=== PATIENT | male | born 1960 | race Caucasian/White ===

== ENCOUNTER 2019-10-29 09:12 | Outpatient (CLI) | payer OTHER, SELFPAY ==
[2019-10-29 09:28] LABS: Basophils Absolute Auto 0.1 K/mm3 (0.0-0.1); Basophils Percent Auto 0.8 % (0.2-1.2); Eosinophils Absolute Auto 0.1 K/mm3 (0-0.3); Eosinophils Percent Auto 1.5 % (0-4.4); Hematocrit 45.6 % (42.0-52.0); Hemoglobin 15.1 g/dL (14.0-18.0); Immature Granulocyte Absolute 0.04 K/mm3 (0.00-0.031); Immature Granulocyte Percent A 0.4 % (0-0.5); Lymphocytes Absolute Auto 1.11 K/mm3 (0.9-3.2); Mean Corpuscular HGB Conc 33.1 g/dl (32-36); Mean Corpuscular Volume 87.5 fl (80-100); Mean Platelet Volume 9.9 fl (7.4-10.4); Monocytes Absolute Auto 0.9 K/mm3 (0.1-0.6); Monocytes Percent Auto 9.7 % (2.6-8.5); Neutrophils Percent Auto 75.6 % (45.5-73.1); Platelet Count Result 304 k/mm3 (150-375); Red Blood Count 5.21 M/mm3 (4.6-6.20); Red Cell Distribution Width 13.2 % (11.5-14.5); White Blood Count 9.3 K/mm3 (4.5-10.0)
[2019-10-29 09:34] LABS: Blood Urea Nitrogen 14 mg/dL (8-26); Carbon Dioxide 24 mmol/L (22-30); Chloride 106 mmol/L (98-109); Estimated Glomerular Filt Rate > 60; Glucose 89 mg/dL (70-105); Potassium 4.1 mmol/L (3.5-4.9); Sodium 140 mmol/L (138-146)
[2019-10-29 12:45] LABS: Alanine Aminotransferase 18 U/L (4-50); Alkaline Phosphatase 78 U/L (38-126); Aspartate Amino Transferase 29 U/L (17-59); Bilirubin,Total 0.5 mg/dL (0.2-1.3); Blood Urea Nitrogen 15 mg/dL (9-20); Calcium 9.2 mg/dL (8.4-10.2); Carbon Dioxide 26 mmol/L (22-30); Chloride 106 mmol/L (98-107); Estimated Glomerular Filt Rate > 60; Glucose 88 mg/dL (75-110); Potassium 4.2 mmol/L (3.4-5.0); Sodium 138 mmol/L (137-145)
[2019-10-29 13:12] LABS: Prostate Specific Antigen < 0.1 ng/mL (< OR = 4.0)
== END 2019-10-29 09:13 | disposition home or self-care (01) ==
PROVIDERS: Visit Provider Internal Medicine Hematology & Oncology
DX: C61 Malignant neoplasm of prostate (principal)
CPT/HCPCS: 36415; 80048; 80053; 84153; 85025

== ENCOUNTER 2020-07-27 09:26 | Outpatient (CLI) | payer OTHER, SELFPAY ==
[2020-07-27 13:37] LABS: Alanine Aminotransferase 18 U/L (4-50); Albumin Level 3.9 g/dL (3.5-5.1); Alkaline Phosphatase 78 U/L (38-126); Anion Gap 4 mmol/L (8-16); Aspartate Amino Transferase 28 U/L (17-59); Bilirubin,Total 0.3 mg/dL (0.2-1.3); Blood Urea Nitrogen 17 mg/dL (9-20); Calcium 9.3 mg/dL (8.4-10.2); Carbon Dioxide 29 mmol/L (22-30); Chloride 103 mmol/L (98-107); Cholesterol 182 mg/dL (0-200); Estimated Glomerular Filt Rate > 60; Glucose 95 mg/dL (75-110); HDL Direct 67 mg/dL; Potassium 4.2 mmol/L (3.4-5.0); Sodium 136 mmol/L (137-145); Triglycerides 87 mg/dL (<150)
[2020-07-27 13:48] LABS: LDL Cholesterol Direct 96 mg/dL
[2020-07-27 14:09] LABS: Prostate Specific Antigen < 0.1 ng/mL (< OR = 4.0)
[2020-07-27 14:42] LABS: Folic Acid 10.7 ng/mL (2.76->20)
[2020-07-30 01:15] LABS: Testosterone Total 520 ng/dL (250-1100)
== END 2020-07-27 09:27 | disposition home or self-care (01) ==
PROVIDERS: PCP Physician Assistant; Visit Provider Physician Assistant
DX: C61 Malignant neoplasm of prostate (principal); N52.31 Erectile dysfunction following radical prostatectomy
CPT/HCPCS: 36415; 80053; 80061; 82607; 82746; 84153; 84403

== ENCOUNTER 2021-07-20 08:42 | Outpatient (CLI) | payer OTHER, SELFPAY ==
--- NOTE | 2021-07-20 08:46 | ECG_ITS ---
Measurements Intervals [place] Rate: 70 P: 5 CA: 130 QRS: -10 QRSD: 83 T: -9 QT: 401 QTc: 435 Interpretive Statements SINUS RHYTHM NONSPECIFIC T-WAVE ABNORMALITY NO PREVIOUS ECG AVAILABLE FOR COMPARISON Electronically Signed On 07-20-2021 12:27:35 SYSTEM MANAGER by Jacques Enrique M.D.
[2021-07-20 09:06] LABS: Hematocrit 45.6 % (42.0-52.0); Hemoglobin 15.1 g/dL (14.0-18.0); Mean Corpuscular HGB Conc 33.1 g/dl (32-36); Mean Corpuscular Hemoglobin 29.2 pg (26-34); Mean Corpuscular Volume 88.2 fl (80-100); Mean Platelet Volume 9.8 fl (7.4-10.4); Platelet Count Result 331 k/mm3 (150-375); Red Blood Count 5.17 M/mm3 (4.6-6.20); Red Cell Distribution Width 13.5 % (11.5-14.5); White Blood Count 9.5 K/mm3 (4.5-10.0)
[2021-07-20 09:19] LABS: Alanine Aminotransferase 27 U/L (4-50); Albumin Level 4.2 g/dL (3.5-5.1); Alkaline Phosphatase 80 U/L (38-126); Anion Gap 6 mmol/L (8-16); Aspartate Amino Transferase 34 U/L (17-59); Bilirubin,Total 0.9 mg/dL (0.2-1.3); Blood Urea Nitrogen 15 mg/dL (9-20); Calcium 8.7 mg/dL (8.4-10.2); Carbon Dioxide 26 mmol/L (22-30); Chloride 105 mmol/L (98-107); Estimated Glomerular Filt Rate > 60; Glucose 102 mg/dL (65-110); Potassium 4.3 mmol/L (3.4-5.0); Sodium 137 mmol/L (137-145)
[2021-07-20 09:48] LABS: Prostate Specific Antigen < 0.1 ng/mL (< OR = 4.0)
== END 2021-07-20 08:43 | disposition home or self-care (01) ==
LOC: ANHLAB 08:46
PROVIDERS: PCP Family Medicine; Visit Provider Family Medicine
DX: Z01.818 Encounter for other preprocedural examination (principal); I10 Essential (primary) hypertension; R53.83 Other fatigue; Z12.5 Encounter for screening for malignant neoplasm of prostate
CPT/HCPCS: 36415; 80053; 84153; 85027; 93005

== ENCOUNTER 2021-07-26 09:31 | Outpatient (CLI) | payer OTHER, SELFPAY ==
[2021-07-26 09:46] LABS: Basophils Absolute Auto 0.1 K/mm3 (0.0-0.1); Basophils Percent Auto 0.5 % (0.2-1.2); Eosinophils Absolute Auto 0.2 K/mm3 (0-0.3); Eosinophils Percent Auto 1.4 % (0-4.4); Hematocrit 49.8 % (42.0-52.0); Hemoglobin 16.2 g/dL (14.0-18.0); Immature Granulocyte Absolute 0.09 K/mm3 (0.00-0.031); Immature Granulocyte Percent A 0.6 % (0-0.5); Lymphocytes Absolute Auto 1.13 K/mm3 (0.9-3.2); Lymphocytes Percent Auto 7.4 % (18.3-44.2); Mean Corpuscular HGB Conc 32.5 g/dl (32-36); Mean Corpuscular Hemoglobin 29.3 pg (26-34); Mean Corpuscular Volume 90.1 fl (80-100); Mean Platelet Volume 9.6 fl (7.4-10.4); Monocytes Absolute Auto 0.9 K/mm3 (0.1-0.6); Monocytes Percent Auto 5.9 % (2.6-8.5); Neutrophils Absolute Auto 12.8 K/mm3 (1.3-6.7); Neutrophils Percent Auto 84.2 % (45.5-73.1); Platelet Count Result 369 k/mm3 (150-375); Red Blood Count 5.53 M/mm3 (4.6-6.20); Red Cell Distribution Width 13.3 % (11.5-14.5); White Blood Count 15.2 K/mm3 (4.5-10.0)
[2021-07-26 09:49] LABS: Blood Urea Nitrogen 18 mg/dL (8-26); Carbon Dioxide 28 mmol/L (22-30); Chloride 101 mmol/L (98-109); Estimated Glomerular Filt Rate > 60; Glucose 95 mg/dL (70-105); Potassium 4.3 mmol/L (3.5-4.9); Sodium 140 mmol/L (138-146)
[2021-07-26 10:35] LABS: Alanine Aminotransferase 24 U/L (4-50); Albumin Level 4.5 g/dL (3.5-5.1); Alkaline Phosphatase 96 U/L (38-126); Anion Gap 6 mmol/L (8-16); Aspartate Amino Transferase 30 U/L (17-59); Bilirubin,Total 0.8 mg/dL (0.2-1.3); Blood Urea Nitrogen 18 mg/dL (9-20); Calcium 9.7 mg/dL (8.4-10.2); Carbon Dioxide 28 mmol/L (22-30); Chloride 104 mmol/L (98-107); Estimated Glomerular Filt Rate > 60; Glucose 101 mg/dL (65-110); Potassium 4.4 mmol/L (3.4-5.0); Sodium 138 mmol/L (137-145)
[2021-07-26 10:59] LABS: Prostate Specific Antigen < 0.1 ng/mL (< OR = 4.0)
== END 2021-07-26 09:32 | disposition home or self-care (01) ==
PROVIDERS: PCP Family Medicine; Visit Provider Internal Medicine Hematology & Oncology
DX: C61 Malignant neoplasm of prostate (principal)
CPT/HCPCS: 36415; 80053; 84153; 85025

== ENCOUNTER 2021-08-13 02:27 | Day surgery (SDC) | payer OTHER, SELFPAY ==
[2021-08-05 12:01] VITALS: BMI 25.9
--- NOTE | 2021-08-05 12:07 | PC.NURSE ---
Report to the Outpatient Waiting Room, entrance under the green pavilion located off [facility], at time _0630_ on date _08-13-21_. OR Time: _08_. - You and your visitor will be asked a series of questions to screen for COVID 19 for your protection. - A mask is required within the hospital. Preoperative COVID Testing Requirements: No COVID Test needed if: (proof is required; if not received patient will have Rapid Test prior to entry) - Patient has received COVID Vaccine at least 14 days prior to procedure date or - Patient has positive COVID test result within last 90 days of surgery date. COVID Test needed if above criteria is not met If not COVID vaccinated a COVID test must be conducted within 72 hours of surgery and patient is asked to isolate self from time of testing until procedure. You will go to the [facility] for your COVID testing. The [facility] Testing site is located at the corner of [address] [facility]. You will only be called if COVID results are positive and your surgeon may reschedule your elective surgery date. Patients may have clear liquids (water, carbonated beverages, clear teas, apple juice) until 3 hours prior to surgery with a maximum of 20 ounces. - No food from midnight until time of surgery - Infants may have breast milk until 4 hours before surgery, formula 6 hours prior to surgery. - Children will be allowed to drink immediately following surgery. If applicable, please bring a bottle or sippy cup to assist with drinking. Juice, water, soda, and popsicles are readily available. For infants on formula, please bring formula the day of surgery. Pacifiers are allowed. Take the following medications with a SIP of water the morning of surgery: Medications to discontinue per physician Date to take last dose Please no make-up, nail faroese, hairspray, perfume, deodorant, or body powder the day of surgery. No jewelry (including any body piercings) or valuables the day of surgery, leave them at home. Please take a shower or bath the night before, or the morning of, surgery with an antibacterial soap. Wear comfortable, loose fitting clothing. Children are encouraged to wear pajamas. - Jewelry must be removed prior to entering the operating room. Rings and piercings that are not removed may be cut off. - The hospital will not accept responsibility for valuables. - Please leave all valuables, including medications, at home the day of surgery. If you are going home after surgery, a licensed road oiling truck driver must drive you home. - NO public transportation without another adult. - We recommend that an adult stay with you for 24 hours following discharge. - We also recommend that you do not drive, make important decision, drink alcoholic beverages, or take any drugs that were not prescribed by your health care provider for at least 24 hours after your discharge time. For Pediatric surgeries, we recommend two adults accompany the child home (only one inside the building at this time). One visitor will be allowed to accompany the patient into the hospital. Patients visitor will be instructed to remain with patient at all times or leave the building. We will allow the visitor to come back to the postoperative area when patient is ready. Follow any additional instructions given to you from your surgeon. Telephone instructions given to __Patient____and asked if any additional questions and then verbalized understanding. Patient advised to call surgeon office or pre surgery nurse liaison [phone] if any additional questions.
[2021-08-13 06:36] VITALS: BP 132/88; PULSE 77; RESP 18; TEMP 36; O2SAT 100
[2021-08-13] MEDS: LACTATED RINGERS 1,000 ML 30 ML IV CONT (07:05)
[2021-08-13] MEDS: ACETAMINOPHEN 500 MG TABLET 1000 MG PO (07:05)
[2021-08-13] MEDS: KETOROLAC 15 MG/ML VIAL (*BKC) IV PUSH (07:10)
--- NOTE | 2021-08-13 08:02 | WPDHPUPDATE1 ---
History and Physical Update Update Date/Time: 08/13/21 08:02 History and Physical has been reviewed, including an updated exam of the patient. There are NO changes in the patient's condition. Risks, benefits, and alternatives have been discussed and questions answered. Patient agrees to proceed with procedure.
--- NOTE | 2021-08-13 08:24 | P.PNAN_ITS ---
Anes - Initial Pre Proc Eval Procedure: Operation Date: 08/13/21 08:30 Proposed Procedures p Right Inguinal Hernia Repair - Lenny Paula MD Date/Time: 08/13/21 08:24 Surgeon: Lenny Paula MD Pre Op Diagnosis: right inguinal hernia Patient Data Age: 60 Gender: M Height: 1.78 m Weight: 81.25 kg Last Vital Signs Temp 36.0 C L 08/13/21 06:36 Pulse 77 08/13/21 06:36 Resp 18 08/13/21 06:36 BP 132/88 08/13/21 06:36 Pulse Ox 100 08/13/21 06:36 Allergies Allergy/AdvReac Type Severity Reaction Status Date / Time No Known Allergies Allergy Unknown Verified 08/13/21 07:28 Home Medications Medication Instructions Recorded Confirmed Type No Home Medications 08/05/21 08/13/21 History Patient hx anesthesia problems: none Family hx anesthesia problems: none Results Review: All pre-operative results and documents have been reviewed as part of the pre-operative evaluation. [facility] Past Medical History Medical History Acute osteomyelitis of left clavicle Anxiety Aortic stenosis Carpal tunnel syndrome left Depression History of blood transfusion History of prostate cancer (~2010) Hypertension Paroxysmal atrial fibrillation Septic arthritis of knee, right Unspecified osteoarthritis, unspecified site Surgical History Surgical History History of carpal tunnel release left History of prostatectomy (~2017) History of synovectomy (~08/2016) Hx of hernia repair 2001 Family History Family History Father No problems noted. 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 Informed Consent: The patient's anesthetic plan and its attendant risks and benefits were discussed with the patient/family/POA. Questions were solicited and answers provided to the satisfaction of the patient/family/POA.
[2021-08-13] MEDS: ceFAZolin 2 GM/D5W 50 ML 2 GM/50 ML BAG IVPB (09:03)
--- NOTE | 2021-08-13 09:32 | SUR.OPER ---
PERFIX LIGHT PLUG EXP 2026-01-16, LOT [id number]
[2021-08-13 10:19] VITALS: BP 106/68; PULSE 74; RESP 16; O2SAT 97
--- NOTE | 2021-08-13 10:22 | W.PM.PROC2 ---
Procedure Note - Detailed Date of Procedure 08/13/21 Pre-op Diagnosis right inguinal hernia Post-op Diagnosis Same Procedure Performed Right inguinal hernia repair with large PerFix plug light Surgeon Lenny Paula MD Refrigeration Systems Installer Daniel JIMENEZ Anesthesia General (G IV S) and Local (0.25% Marcaine with epinephrine) Indications Patient has noticed a large bulge in the right groin. It is occasionally painful and when it bulges it is bothersome as well. He was seen in the office and found to have a reducible right inguinal hernia. He is taken to surgery now for repair Findings An indirect fairly large right inguinal hernia was noted. Description of Procedure The patient was taken to surgery and placed in a supine position. General anesthesia with IV sedation was administered. The right groin and genitalia were prepped and draped. The proposed incision was marked on the skin. Local anesthetic was infiltrated into the skin and the deeper subcutaneous tissues. Incision was made dissection was carried down through the subcutaneous. Crossing veins were cauterized and divided. We dissected through Ventura's fascia and down to the external oblique aponeurosis. The aponeurosis and the external ring were exposed. Additional local was infiltrated deep to the aponeurosis in the area of the inguinal canal and spermatic cord. The aponeurosis was then opened laterally and extended medially through the external ring. The leaves the aponeurosis were carefully freed from the inguinal canal contents. The ileoinguinal nerve was left attached to the cord and was avoided throughout the surgery. We mobilized the cord medially around a Jean-Paul drain. We then mobilized the cord laterally to the internal ring. We then dissected in the anteromedial aspect of the cord and found the hernia sac. This was carefully dissected free from the spermatic cord and other inguinal canal contents. There was a large lipoma of the spermatic cord as well. We dissected the hernia sac back to a high dissection. We then dissected the lipoma from the cord and dissected it back to the internal ring. We then amputated the lipoma at the internal ring and discarded it. A bit more dissection was performed on the hernia sac. The sac was then dunked into the retroperitoneum. The large PerFix plug light was then placed in the defect. The plug was then sutured to the transversalis fascia with interrupted 3-0 Vicryl suture to secure it in place. Some additional dissection on the cord freeing up some cremasteric fibers was performed associated with the securing of the plug. No significant bleeding occurred. We then cut the patch to the appropriate size and placed it over the inguinal canal floor. The lateral leaves were passed beyond the cord. We then placed Xaracoll over the patch. The spermatic cord and ilioinguinal nerve were then laid over the Xaracoll. The external oblique aponeurosis was closed with interrupted 3-0 Vicryl suture. The 2nd piece of Xaracoll was then placed over the external oblique aponeurosis. Ventura's fascia was closed with interrupted 3-0 Vicryl suture. The last pieces Xaracoll was placed in the subcutaneous. The skin was loosely approximated with interrupted 4-0 Vicryl skin suture. The skin was finally closed with a running 4-0 Monocryl skin suture. The wound was dressed with Exofin surgical adhesive. The patient was awakened and taken to recovery in good condition. Sponge and needle counts were correct x2. Implants Large PerFix plug light, Xaracoll Estimated Blood Loss -5 Drains No Packing No Pathology None sent Complications No immediate complications Condition Stable Disposition Same day
[2021-08-13 10:45] VITALS: BP 117/82; PULSE 75; RESP 16
[2021-08-13 11:15] VITALS: BP 134/90; PULSE 62; RESP 18
== END 2021-08-13 11:52 | disposition home or self-care (01) ==
PROVIDERS: PCP Family Medicine; Visit Provider Surgery
PROC: (CPT 49505; principal; 2021-08-13 08:30)
DX: K40.90 Unilateral inguinal hernia, without obstruction or gangrene, not specified as recurrent (principal); F17.210 Nicotine dependence, cigarettes, uncomplicated; Z79.82 Long term (current) use of aspirin; Z85.46 Personal history of malignant neoplasm of prostate
CPT/HCPCS: 49505; 36415; 80053; 84153; 85027; 93005; A9270; C1781; J0690; J1885; J2250; J2270; J2405; J2704; J3010; J7120

== ENCOUNTER 2021-10-06 12:52 | Outpatient (CLI) | payer OTHER, SELFPAY ==
--- NOTE | ~2021-10-06 | US_ITS ---
EXAMINATION: US scrotum doppler DATE: 10/06/2021 13:26 INDICATION: Hydrocele. Right inguinal hernia repair one month ago. Report of palpable right-sided abn ormality. No report of pain or fever. TECHNIQUE: Grayscale and Doppler ultrasound images of the testes were obtained. COMPARISON: None. FINDINGS: The right testis measures 3.6 x 2.0 x 2.4 cm. The left testis measures 3.3 x 1.8 x 2.4 cm. There is normal vascular flow to both testes. The right epididymis contains a 1.1 cm cyst, otherwise normal with normal vascular flow. The left epididymis is normal with normal vascular flow. There is n o varicocele or hydrocele. 4.9 x 3.2 x 6.4 cm mass adjacent to the right testicle with heterogeneous lacy internal echogenicity and likely connnection to the inguinal canal. IMPRESSION: 1. Presumed right scrotal hematoma, likely related to recent surgical procedure. Recommend clinical follow up and re-imaging in 4-6 weeks to evaluate for resolution. Reviewed, dictated and finalized at location K. IMPRESSION: 1. Presumed right scrotal hematoma, likely related to recent surgical procedur e. Recommend clinical follow up and re-imaging in 4-6 weeks to evaluate for res olution.
== END 2021-10-06 12:53 ==
PROVIDERS: PCP Family Medicine; Visit Provider Surgery
DX: N43.3 Hydrocele, unspecified (principal)
CPT/HCPCS: 76870; 93976

== ENCOUNTER 2022-07-26 10:38 | Outpatient (CLI) | payer OTHER, SELFPAY ==
[2022-07-26 10:53] LABS: Basophils Absolute Auto 0.1 K/mm3 (0.0-0.1); Basophils Percent Auto 0.6 % (0.2-1.2); Eosinophils Absolute Auto 0.2 K/mm3 (0-0.3); Eosinophils Percent Auto 2.1 % (0-4.4); Hematocrit 44.8 % (42.0-52.0); Hemoglobin 14.9 g/dL (14.0-18.0); Immature Granulocyte Absolute 0.04 K/mm3 (0.00-0.031); Immature Granulocyte Percent A 0.5 % (0-0.5); Lymphocytes Absolute Auto 1.28 K/mm3 (0.9-3.2); Lymphocytes Percent Auto 14.6 % (18.3-44.2); Mean Corpuscular HGB Conc 33.3 g/dl (32-36); Mean Corpuscular Hemoglobin 28.5 pg (26-34); Mean Corpuscular Volume 85.8 fl (80-100); Mean Platelet Volume 10.3 fl (7.4-10.4); Monocytes Absolute Auto 0.8 K/mm3 (0.1-0.6); Monocytes Percent Auto 9.4 % (2.6-8.5); Neutrophils Absolute Auto 6.4 K/mm3 (1.3-6.7); Neutrophils Percent Auto 72.8 % (45.5-73.1); Platelet Count Result 317 k/mm3 (150-375); Red Blood Count 5.22 M/mm3 (4.6-6.20); Red Cell Distribution Width 13.8 % (11.5-14.5); White Blood Count 8.8 K/mm3 (4.5-10.0)
[2022-07-26 10:57] LABS: Blood Urea Nitrogen 14 mg/dL (8-26); Carbon Dioxide 27 mmol/L (22-30); Chloride 103 mmol/L (98-109); Estimated Glomerular Filt Rate > 60; Glucose 94 mg/dL (70-105); Ionized Calcium (POC) 1.26 mmol/L (1.11-1.31); Potassium 4.4 mmol/L (3.5-4.9); Sodium 140 mmol/L (138-146)
[2022-07-26 17:11] LABS: Alanine Aminotransferase 42 U/L (6-50); Albumin Level 4.3 g/dL (3.5-5.1); Alkaline Phosphatase 80 U/L (38-126); Anion Gap 4 mmol/L (8-16); Aspartate Amino Transferase 40 U/L (17-59); Bilirubin,Total 0.6 mg/dL (0.2-1.3); Blood Urea Nitrogen 15 mg/dL (9-20); Calcium 9.2 mg/dL (8.4-10.2); Carbon Dioxide 27 mmol/L (22-30); Chloride 106 mmol/L (98-107); Estimated Glomerular Filt Rate > 60; Glucose 89 mg/dL (65-110); Potassium 4.5 mmol/L (3.4-5.0); Sodium 137 mmol/L (137-145)
[2022-07-26 17:31] LABS: Prostate Specific Antigen < 0.1 ng/mL (< OR = 4.0)
== END 2022-07-26 10:39 | disposition home or self-care (01) ==
PROVIDERS: PCP Family Medicine; Visit Provider Internal Medicine Hematology & Oncology
DX: C61 Malignant neoplasm of prostate (principal)
CPT/HCPCS: 36415; 80047; 80053; 84153; 85025

== ENCOUNTER 2023-08-07 15:17 | Outpatient (CLI) | payer OTHER, SELFPAY ==
[2023-08-07 15:38] LABS: Basophils Absolute Auto 0.1 K/mm3 (0.0-0.1); Basophils Percent Auto 0.8 % (0.2-1.2); Eosinophils Absolute Auto 0.2 K/mm3 (0-0.3); Eosinophils Percent Auto 1.4 % (0-4.4); Hematocrit 44.3 % (42.0-52.0); Hemoglobin 14.6 g/dL (14.0-18.0); Immature Granulocyte Absolute 0.05 K/mm3 (0.00-0.031); Immature Granulocyte Percent A 0.5 % (0-0.5); Lymphocytes Absolute Auto 2.21 K/mm3 (0.9-3.2); Lymphocytes Percent Auto 21.1 % (18.3-44.2); Mean Corpuscular Hemoglobin 28.3 pg (26-34); Monocytes Absolute Auto 0.9 K/mm3 (0.1-0.6); Monocytes Percent Auto 8.7 % (2.6-8.5); Neutrophils Absolute Auto 7.1 K/mm3 (1.3-6.7); Neutrophils Percent Auto 67.5 % (45.5-73.1); Platelet Count Result 303 k/mm3 (150-375); Red Blood Count 5.15 M/mm3 (4.6-6.20); Red Cell Distribution Width 13.9 % (11.5-14.5); White Blood Count 10.5 K/mm3 (4.5-10.0)
[2023-08-07 16:37] LABS: Alanine Aminotransferase 25 U/L (6-50); Albumin Level 4.4 g/dL (3.5-5.1); Alkaline Phosphatase 76 U/L (38-126); Anion Gap 6 mmol/L (8-16); Aspartate Amino Transferase 34 U/L (17-59); Bilirubin,Total 0.4 mg/dL (0.2-1.3); Blood Urea Nitrogen 16 mg/dL (9-20); Calcium 9.3 mg/dL (8.4-10.2); Carbon Dioxide 26 mmol/L (22-30); Chloride 104 mmol/L (98-107); Estimated Glomerular Filt Rate > 60; Glucose 97 mg/dL (65-110); Potassium 4.6 mmol/L (3.4-5.0); Sodium 136 mmol/L (137-145)
[2023-08-07 17:04] LABS: Prostate Specific Antigen < 0.1 ng/mL (< OR = 4.0)
== END 2023-08-07 15:18 | disposition home or self-care (01) ==
PROVIDERS: PCP Family Medicine; Visit Provider Internal Medicine Hematology & Oncology
DX: C61 Malignant neoplasm of prostate (principal)
CPT/HCPCS: 36415; 80053; 84153; 85025

== ENCOUNTER 2024-07-12 04:37 | Day surgery (SDC) | payer OTHER, SELFPAY ==
[2024-07-01 13:51] VITALS: BMI 25.9
--- OUTSIDE RECORDS SUMMARY | 2024-07-12 04:43 | XMS_ITS | Clinical Summary ---
Author Organization [facility] Address [address] [place] [address] Care Team Providers Care Tire Builder Name Role Phone Vicente Braun MD Primary Care Provider [phone] Allergies No known active allergies Medications No known medications Active Problems Problem Noted Date Diagnosed Date Prostate cancer 06/14/2017 Tobacco use 06/14/2017 Encounters Date Type Department Care Team Description 07/10/2024 External Device Data [facility] Provider, Abstract 07/10/2024 External Device Data [facility] Provider, Abstract 06/18/2024 External Device Data [facility] Provider, Abstract 06/13/2024 External Device Data [facility] Provider, Abstract 04/30/2024 External Device Data [facility] Provider, Abstract from Last 3 Months Family History Medical History Relation Name Comments Cancer Mother Relation Name Status Comments Brother Alive Father Alive Mother Sister Alive Social History Tobacco Use Types Packs/Day Years Used Date Smoking Tobacco: Every Day Cigarettes 1 25 Smokeless Tobacco: Never Tobacco Cessation:Ready to Q uit: Not Asked; Counseling Given: Not Answered Alcohol Use Standard Drinks/Week Comments Yes 12 (1 standard drink = 0.6 oz pu re alcohol) Sex and Gender Information Value Date Recorded Sex Assigned at Not on file Legal 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 Gender Identity Not on file Sexual Orientation Not on file Last Filed Vital Signs Vital Sign Reading Time Taken Comments Blood Pressure 138/90 08/17/2023 3:19 PM CDT Pulse 96 08/17/2023 3:16 PM CDT Temperature 36.1 C (97 F) 08/17/2023 3:16 PM CDT Respiratory Rate 14 08/17/2023 3:16 PM CDT Oxygen Saturation 96% 08/17/2023 3:16 PM CDT Inhaled Oxygen Concentration - - Weight 87.7 kg (193 lb 6.4 oz) 08/17/2023 3:16 P M CDT Height 177.8 cm (5' 10 ) 07/26/2021 9:46 AM ROVER TENDER Body Mass Index 27.75 07/26/2021 9:46 AM ROVER TENDER Plan of Treatment Upcoming Encounters Date Type Department Care Team (Late st Contact Info) Description 08/19/2024 3:30 PM CDT Office Visit [facility] Oncology and Hematology - [place] [address] [place] [address] Archie León MD [address] [place] [address] Health Maintenance Due Date Last Done Comments Pre-Diabetes and Diabetes Screening 1960 PNEUMOCOCCAL VACCINE 0-64 YEARS (1 of 2 - PCV) 969 DTAP/TDAP/TD VACCINES (1 - Tdap) 1981 COLORECTAL SCREENING 01/01/2008 Colorectal Cancer Screening 01/01/2008 FIT-DNA Q 3 years 01/01/2008 FIT/FOBT Q 1 year 01/01/2008 Flex Sig/CT Colonography Q 5 years 01/01/2008 Lung Cancer Screening 2012 ZOSTER VACCINE (1 of 2) 2012 INFLUENZA VACCINE (#1) 2023 RSV VACCINE (60+ or ) (1 - 1-dose 75+ series) 2037 Insurance [facility] [id number] POS II Care Teams Tire Builder Relationship Specialty Start Date End Date Vicente Braun MD [address] [place] [address] PCP - General Family Practice 06/09/17
--- OUTSIDE RECORDS SUMMARY | 2024-07-12 04:43 | XMS_ITS | Encounter Summary ---
Author Organization [facility] Address [address] [place] [address] Care Team Providers Care Manufacturing Engineering Intern Name Role Phone Vicente Braun MD Primary Care Provider [phone] Encounter Details Date Type Department Care Team (Late st Contact Info) Description 07/10/2024 External Device Data [facility] Provider, Abstract NO ADDRESS ON FILE Social History Tobacco Use Types Packs/Day Years Used Date Smoking Tobacco: Every Day Cigarettes 1 25 Smokeless Tobacco: Never Alcohol Use Standard Drinks/Week Comments Yes 12 (1 standard drink = 0.6 oz pu re alcohol) Sex and Gender Information Value Date Recorded Sex Assigned at Not on file 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 [place] [address] documented as of this encounter Visit Diagnoses Not on filedocumented in this encounter Care Teams Manufacturing Engineering Intern Relationship Specialty Start Date End Date Vicenet Braun MD [address] [place] [address] PCP - General Family Practice 06/09/17 documented as of this encounter
[2024-07-12 10:10] VITALS: BP 134/85; PULSE 92; RESP 18; TEMP 36.2; O2SAT 99; BMI 24.0
--- NOTE | 2024-07-12 10:15 | WPDANESEPPF ---
Anes - Initial Pre Proc Eval Procedure: Operation Date: 07/12/24 11:30 Proposed Procedures p Screening Colonoscopy - Todd Brown MD Date/Time: 07/12/24 10:15 Surgeon: Todd Brown MD Pre Op Diagnosis: screening colon Patient Data Age: 63 Gender: M Height: 1.78 m Weight: 76 kg Last Vital Signs Temp 36.2 C L 07/12/24 10:10 Pulse 92 07/12/24 10:10 Resp 18 07/12/24 10:10 BP 134/85 07/12/24 10:10 Pulse Ox 99 07/12/24 10:10 O2 Del Method Room Air 07/12/24 10:10 Allergies Allergy/AdvReac Type Severity Reaction Status Date / Time No Known Allergies Allergy Unknown Verified 07/12/24 10:09 Home Medications ?Medication ?Instructions ?Recorded ?Confirmed ?Type No Home Medications 08/26/21 07/01/24 History Patient hx anesthesia problems: none Family hx anesthesia problems: none Results Review: All pre-operative results and documents have been reviewed as part of the pre-operative evaluation. [facility] Past Medical History Medical History Acute osteomyelitis of left clavicle Anxiety Aortic stenosis Carpal tunnel syndrome left Depression History of blood transfusion History of prostate cancer (~2010) Hypertension Paroxysmal atrial fibrillation Septic arthritis of knee, right Unspecified osteoarthritis, unspecified site Surgical History Surgical History H/O inguinal hernia repair [facility] 08/13/21 History of carpal tunnel release left History of prostatectomy (~2017) History of synovectomy (~08/2016) Hx of hernia repair 2001 Family History Family History Father No problems noted. Mother Cancer Cervical Sibling Throat cancer Son Overdose Social History Social History Smoking packs per day: 0.5 Smoking cigarettes per day: 10.0 Years smoked: 40 Smoking pack-years: 20.00 Smoking status: Current every day smoker Tobacco type: cigarettes Second hand tobacco smoke exposure: Yes Additional smoking assessment comments: 1/2 pack daily Alcohol intake: current Drinks per week: 6 Alcohol use details: drinks beer socially Substance use: current Substance use type: marijuana Other substance usage details: smokes marijuana once a week Living arrangements: with family Occupation/Education: occupation 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 Informed Consent: The patient's anesthetic plan and its attendant risks and benefits were discussed with the patient/family/POA. Questions were solicited and answers provided to the satisfaction of the patient/family/POA.
[2024-07-12] MEDS: LACTATED RINGERS 1,000 ML 150 ML IV CONT (10:18)
--- NOTE | 2024-07-12 10:46 | PM.HPGS ---
History of Present Illness History of Present Illness Consent: Risks, benefits, and alternatives have been discussed and questions answered. Patient agrees to proceed with procedure. Chief complaint: screening colon Narrative: Eren Stoll is a 63 year old male here for first screening colonoscopy Review of Systems Review of Systems: All systems reviewed & are unremarkable except as noted in HPI and below PMFSH Past Medical History Medical History Acute osteomyelitis of left clavicle Anxiety Aortic stenosis Carpal tunnel syndrome left Depression History of blood transfusion History of prostate cancer (~2010) Hypertension Paroxysmal atrial fibrillation Septic arthritis of knee, right Unspecified osteoarthritis, unspecified site Surgical History Surgical History H/O inguinal hernia repair [facility] 08/13/21 History of carpal tunnel release left History of prostatectomy (~2017) History of synovectomy (~08/2016) Hx of hernia repair 2001 Family History Family History Father No problems noted. Mother Cancer Cervical Sibling Throat cancer Son Overdose Social History Social History Smoking packs per day: 0.5 Smoking cigarettes per day: 10.0 Years smoked: 40 Smoking pack-years: 20.00 Smoking status: Current every day smoker Tobacco type: cigarettes Second hand tobacco smoke exposure: Yes Additional smoking assessment comments: 1/2 pack daily Alcohol intake: current Drinks per week: 6 Alcohol use details: drinks beer socially Substance use: current Substance use type: marijuana Other substance usage details: smokes marijuana once a week Living arrangements: with family Occupation/Education: occupation 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 Gender identity (if verbalized by the patient): Male Spiritual care concerns: No Meds Home Medications and Allergies Home Medications ?Medication ?Instructions ?Recorded ?Confirmed ?Type No Home Medications 08/26/21 07/01/24 History Allergies Allergy/AdvReac Type Severity Reaction Status Date / Time No Known Allergies Allergy Unknown Verified 07/12/24 10:09 Vital Signs Vital Signs - 24 hr 07/12/24 10:10 Temperature 97.1 F L Pulse Rate 92 Respiratory Rate 18 Blood Pressure 134/85 Pulse Oximetry 99 Oxygen Delivery Room Air Exam Const: General: comfortable and no acute distress HENMT: Face/Nose/Sinus: Normal nares present Eyes: General: appearance normal, both eyes and all related structures Neck: Neck: no JVD Resp: Auscultation: clear to auscultation bilaterally Cardio: Rate: regular rate Rhythm: regular rhythm GI: Inspection: non-distended GI Palp: Yes Soft to palpation Skin: General skin exam: normal color Neuro: Speech: normal speech Extrem: General: normal to inspection Psych: Mental Status: mental status grossly normal Assessment and Plan Assessment and plan (1) Colon cancer screening: Code(s): Z12.11 - Encounter for screening for malignant neoplasm of colon Status: Acute Assessment and Plan: colonoscopy
[2024-07-12 11:07] VITALS: BP 114/73; PULSE 82; RESP 17; O2SAT 97
[2024-07-12 11:17] VITALS: BP 116/69; PULSE 77; RESP 18; O2SAT 96
[2024-07-12 11:27] VITALS: BP 119/85; PULSE 82; RESP 20; O2SAT 96
== END 2024-07-12 11:38 | disposition home or self-care (01) ==
PROVIDERS: PCP Family Medicine; Visit Provider Internal Medicine Gastroenterology
PROC: 0DJD8ZZ Inspection of Lower Intestinal Tract, Via Natural or Artificial Opening Endoscopic (ICD-10-PCS; CPT 45378; principal; 2024-07-12 11:30)
DX: Z12.11 Encounter for screening for malignant neoplasm of colon (principal); K51.90 Ulcerative colitis, unspecified, without complications; K57.30 Diverticulosis of large intestine without perforation or abscess without bleeding; K64.8 Other hemorrhoids; F17.210 Nicotine dependence, cigarettes, uncomplicated; F12.90 Cannabis use, unspecified, uncomplicated
CPT/HCPCS: 45380; 88305; J2003; J2704; J7120

== ENCOUNTER 2024-08-19 13:53 | Outpatient (CLI) | payer OTHER, SELFPAY ==
[2024-08-19 14:10] LABS: Basophils Absolute Auto 0.1 K/mm3 (0.0-0.1); Basophils Percent Auto 0.7 % (0.2-1.2); Eosinophils Absolute Auto 0.1 K/mm3 (0-0.3); Eosinophils Percent Auto 1.6 % (0-4.4); Hematocrit 41.3 % (42.0-52.0); Hemoglobin 13.6 g/dL (14.0-18.0); Immature Granulocyte Absolute 0.02 K/mm3 (0.00-0.031); Immature Granulocyte Percent A 0.2 % (0-0.5); Lymphocytes Absolute Auto 1.35 K/mm3 (0.9-3.2); Mean Corpuscular HGB Conc 32.9 g/dl (32-36); Mean Corpuscular Hemoglobin 29.4 pg (26-34); Mean Corpuscular Volume 89.4 fl (80-100); Monocytes Absolute Auto 0.7 K/mm3 (0.1-0.6); Neutrophils Absolute Auto 6.7 K/mm3 (1.3-6.7); Neutrophils Percent Auto 74.5 % (45.5-73.1); Platelet Count Result 293 k/mm3 (150-375); Red Blood Count 4.62 M/mm3 (4.6-6.20)
[2024-08-19 14:57] LABS: Alanine Aminotransferase 24 U/L (6-50); Alkaline Phosphatase 77 U/L (38-126); Anion Gap 5 mmol/L (4-12); Aspartate Amino Transferase 36 U/L (17-59); Bilirubin,Total 0.3 mg/dL (0.2-1.3); Blood Urea Nitrogen 21 mg/dL (9-20); Calcium 9.3 mg/dL (8.4-10.2); Carbon Dioxide 28 mmol/L (22-30); Chloride 106 mmol/L (98-107); Estimated Glomerular Filt Rate 53; Glucose 107 mg/dL (65-110); Potassium 4.1 mmol/L (3.4-5.0); Sodium 139 mmol/L (137-145)
--- OUTSIDE RECORDS SUMMARY | 2024-08-19 15:16 | XMS_ITS | Encounter Summary ---
Author Organization [facility] [employer] Address [address] [place] [address] Care Team Providers Care Asphalt Surface Heater Operator Name Role Phone Vicente Braun MD Primary Care Provider [phone] Encounter Details Date Type Department Care Team (Late Contact Info) Description 08/19/2024 Orders Only [facility] Oncology and [facility] [address] [place] [address] Archie León MD [facility] [employer] [address] [place] [phone] Prostate cancer (CMS/HCC) (Primary Dx) Social History Tobacco Use Types Packs/Day Years Used Date Smoking Tobacco: Every Day Cigarettes 1 25 Smokeless Tobacco: Never Alcohol Use Standard Drinks/Week Comments Yes 12 (1 standard drink = 0.6 oz pu re alcohol) Sex and Gender Information Value Date Recorded Sex Assigned at Not on file Legal Sex Male 10:33 AM PRICE ECONOMIST Gender Identity Not on file Sexual Orientation Not on file documented as of this encounter Plan of Treatment Upcoming Encounters Date Type Department Care Team (Late Contact Info) Description 08/20/2024 3:30 PM CDT Office Visit [facility] Oncology and Hematology [facility] [address] [place] [address] Archie León MD [facility] [employer] [address] [place] [address] Scheduled Orders Name Type Priority Associated Diagnoses Orde r Schedule COMPREHENSIVE METABOLIC PANEL Lab Routine Prostate cancer (CMS/HCC) Expected: 08/19/2024, Expires: 08/19/2025 CBC WITH DIFFERENTIAL Lab Routine Prostate cancer ([facility]/HCC) Expected: 08/19/2024, Expires: 08/19/2025 PSA Lab Routine Prostate cancer ([facility]/HCC) Expected: 08/19/2024, Expires: 08/19/2025 documented as of this encounter Visit Diagnoses Diagnosis Prostate cancer ([facility])- Primary Malignant neoplasm of prostate documented in this encounter Care Teams Asphalt Surface Heater Operator Relationship Specialty Start Date End Date Vicente Braun MD [address] [place] [phone] PCP - General Family Practice 06/09/17 documented as of this encounter
--- OUTSIDE RECORDS SUMMARY | 2024-08-19 15:16 | XMS_ITS | Encounter Summary ---
Author Organization [facility] Address [address] [place] [address] Care Team Providers Care Dive Master Name Role Phone Unavailable Primary Care Provider Unavailabl e Encounter Details Date Type Department Care Team (Late st Contact Info) Description 07/24/2024 Lab Requisition [facility] - DermPath Lab [address] [facility], [place] [address] Nitza Lerner MD [address] [facility] 3 [place] [address] Social History Tobacco Use Types Packs/Day Years Used Date Smoking Tobacco: Never Assessed Sex and Gender Information Value Date Recorded Sex Assigned at Not on file Gender Identity Not on file Sexual Orientation Not on file documented as of this encounter Plan of Treatment Not on file documented as of this encounter Procedures Procedure Name Priority Date/Time Associated Diagnosis Comments DERMATOPATHOLOGY Routine 07/24/2024 9:08 AM CORRECTIONAL SUBSTANCE ABUSE COUNSELOR documented in this encounter Results * DERMATOPATHOLOGY (07/24/2024 9:08 AM CORRECTIONAL SUBSTANCE ABUSE COUNSELOR) Case Report Dermatopathology Report Case: [id number] Authorizing Provider: Nitza Lerner MD Collected: 07/24/2024 09:08 AM Ordering Location: [facility] Physician [facility] - Received: 07/26/2024 07:00 AM DermPath Lab Pathologist: Elvia Troncoso MD Specimen: Skin, left crown 1:59 PM CDT DERMATOPATHOLOGY LABORATORY Final Diagnosis Specimen A. 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 The specimen consists of a shave biopsy measuring 00b94t0 mm. Jar 0. 1:59 PM CDT DERMATOPATHOLOGY LABORATORY Microscopic Description Specimen A. SKIN, left crown: The epidermis shows parakeratosis, full thickness disorderly maturation of keratinocytes, mitoses at different levels, and dyskeratotic cells. The proliferation extends down adnexal structures. There is a column of marked compact hyperkeratosis. 1:59 PM CDT DERMATOPATHOLOGY LABORATORY Disclaimer An external and internal positive and negative controls are appropriate for the histochemical, immunohistochemical and immunofluorescence stain(s) in this case (if any), except where stated explicitly. The performance characteristics of the stain(s) cited in this report were developed and its performance characteristic determined by the Dermatopathology Laboratory at [facility], directed by Dr. Amie Olivares. These tests need not be, and therefore are not, approved by the [place] Food and Drug Administration. The tests are used for clinical purposes. Billing Codes Specimen Charges Stain Charges 59502 1 1:59 PM CDT DERMATOPATHOLOGY LABORATORY Embedded Images 1:59 PM CDT DERMATOPATHOLOGY LABORATORY Pathology/Cytolo gy TISSUE SPECIMEN FROM SKIN / Unknown 07/24/2024 9:08 AM CORRECTIONAL SUBSTANCE ABUSE COUNSELOR 07/26/2024 7:00 AM CORRECTIONAL SUBSTANCE ABUSE COUNSELOR Nitza Lerner MD LAB - PATHOLOGY/CYT OLOGY ORDERABLES DERMATOPATHOLOGY LABORATORY [facility] Department of Dermatology [address], [address] [phone] documented in this encounter Visit Diagnoses Not on filedocumented in this encounter
--- OUTSIDE RECORDS SUMMARY | 2024-08-19 15:16 | XMS_ITS | Clinical Summary ---
Author Organization [facility] Address [address] [place] [address] Care Team Providers Care Repairer Recreational Vehicle Name Role Phone Unavailable Primary Care Provider Unavailabl e Source Comments [facility],non-owned Affiliates and Associated Physician Practices is amultiple site organization consisting of ambulatory clinics and hospital sitesin [place], [place], [place] and [place]. This disclosure is being madepursuant to the Care Everywhere program and may not contain all information available regarding this patient. Last updated 18.[facility] Encounters Date Type Department Care Team Description 07/24/2024 Lab Requisition [facility] - DermPath Lab [address] [place] [phone] Nitza Lerner MD from Last 3 Months Social History Tobacco Use Types Packs/Day Years Used Date Smoking Tobacco: Never Assessed Sex and Gender Information Value Date Recorded Sex Assigned at Not on file Gender Identity Not on file Sexual Orientation Not on file Plan of Treatment Health Maintenance Due Date Last Done Comments COLOGUARD (AGES 45-75) - COL ON CA SCREENING 1962 COLON MONITORING 1962 COLONOSCOPY - COLON CA SCREENING 1962 CT COLONOGRAPHY - COLON CA SCREENING 1962 Colorectal Cancer Screening 1962 FIT - COLON CA SCREENING 1962 FLEX SIG - COLON CA SCREENING 1962 LIPID TESTING 1962 HIV SCREENING 1977 HEPATITIS C SCREENING 12/26/1980 DTAP/TDAP/TD VACCINES (1 - Tdap) 1981 PNEUMOCOCCAL VACCINE 50+ (1 of 1 - PCV) 2012 ZOSTER VACCINE (1 of 2) 2012 COVID-19 VACCINE (1 - 2023-2 5 season) 2024 INFLUENZA VACCINE (#1) 2024 DEPRESSION SCREENING 05/22/2024 Respiratory Syncytial Virus (RSV) Vaccine Pt: or over 60 yrs (1 - 1-dose 75+ series) 2037 HEPATITIS B VACCINE Aged Out No longe r eligible based on patient's age to complete this topic HIB VACCINE Aged Out No longer eligi ble based on patient's age to complete this topic HPV VACCINE Aged Out No longer eligi ble based on patient's age to complete this topic MENINGOCOCCAL (Group B) VACC INE SHARED DECISION-MAKING Aged Out No longer eligibl e based on patient's age to complete this topic MENINGOCOCCAL GROUPS A/C/Y/W VACCINE Aged Out No longer eligible b ased on patient's age to complete this topic Procedures Procedure Name Priority Date/Time Associated Diagnosis Comments DERMATOPATHOLOGY Routine 07/24/2024 9:08 AM AGRIBUSINESS PROFESSOR from Last 3 Months Results * DERMATOPATHOLOGY (07/24/2024 9:08 AM AGRIBUSINESS PROFESSOR) Case Report Dermatopathology Report [id number]: [id number] Authorizing Provider: Nitza Lerner MD Collected: 07/24/2024 09:08 AM Ordering Location: [facility] - Received: 07/26/2024 07:00 AM DermPath Lab [...] specimen consists of a shave biopsy measuring 39u30u9 mm. Jar 0. 1:59 PM CDT DERMATOPATHOLOGY [...] characteristic determined by the Dermatopathology Laboratory at [facility], directed by Dr. Amie Olivares. These tests need not be, and therefore are not, approved by the [place] Food and Drug Administration. The tests are used for clinical purposes. Billing Codes Specimen Charges Stain Charges 19178 1 5 1:59 PM CDT DERMATOPATHOLOGY LABORATORY Embedded Images 1:59 PM CDT DERMATOPATHOLOGY LABORATORY Pathology/Cytolo gy TISSUE SPECIMEN FROM SKIN / Unknown 07/24/2024 9:08 AM AGRIBUSINESS PROFESSOR 07/26/2024 7:00 AM AGRIBUSINESS PROFESSOR Nitza Lerner MD LAB - PATHOLOGY/CYT OLOGY ORDERABLES DERMATOPATHOLOGY LABORATORY [facility] - Department of Dermatology [facility] Medicine [address] [place] [address], [address] Floor [address] [phone] from Last 3 Months
--- OUTSIDE RECORDS SUMMARY | 2024-08-19 15:16 | XMS_ITS | Clinical Summary ---
Author Organization [facility] Address [address] [place] [address] Care Team Providers Care Retanned Leather Roller Name Role Phone Vicente Braun MD Primary Care Provider [phone] Allergies No known active allergies Medications No known medications Active Problems Problem Noted Date Diagnosed Date Prostate cancer 06/14/2017 Tobacco use 06/14/2017 Encounters Date Type Department Care Team Description 08/19/2024 Orders Only [facility] Oncology and Hematology - [place] [address] [address] Archie León MD Prostate cancer ([facility]) (Primary Dx) 08/07/2024 External Device Data STL ABSTRACTION Provider, Abstract 07/27/2024 External Device Data STL ABSTRACTION Provider, Abstract 07/26/2024 External Device Data STL ABSTRACTION Provider, Abstract 07/24/2024 External Device Data STL ABSTRACTION Provider, Abstract [...] on file Legal Sex Male 10:33 AM ADMINISTRATION INTERNSHIP Gender Identity Not on file Sexual Orientation [...] cm (5' 10 ) 07/26/2021 9:46 AM ADMINISTRATION INTERNSHIP Body Mass Index 27.75 07/26/2021 9:46 AM ADMINISTRATION INTERNSHIP Plan of Treatment Upcoming Encounters Date Type Department Care Team (Late st Contact Info) Description 08/20/2024 3:30 PM CDT Office Visit [facility] Oncology and Hematology [facility] [address] [facility] [[email or web address] [address] [place] [address] Archie León MD [address] [facility] [address] [place] [address] Health Maintenance Due Date Last Done Comments DTAP/TDAP/TD VACCINES (1 - Tdap) 1981 COLORECTAL SCREENING 01/01/2008 Colorectal Cancer Screening 01/01/2008 FIT-DNA Q 3 years 01/01/2008 FIT/FOBT Q 1 year 01/01/2008 Flex Sig/CT Colonography Q 5 years 01/01/2008 ZOSTER VACCINE (1 of 2) 2012 INFLUENZA VACCINE (#1) 2023 Preventative Visit- Commercial 05/22/2024 RSV VACCINE (60+ or ) (1 - 1-dose 75+ series) 2037 [facility] [id number] POS II Care Teams Retanned Leather Roller Relationship Specialty Start Date End Date Vicente Braun MD [address] [place] [address] PCP - General Family Practice 06/09/17
[2024-08-19 15:30] LABS: Prostate Specific Antigen 0.2 ng/mL (< OR = 4.0)
== END 2024-08-19 13:54 | disposition home or self-care (01) ==
PROVIDERS: PCP Family Medicine; Visit Provider Internal Medicine Hematology & Oncology
DX: C61 Malignant neoplasm of prostate (principal)
CPT/HCPCS: 36415; 80053; 84153; 85025

== ENCOUNTER 2025-01-15 00:58 | Day surgery (SDC) | payer OTHER, SELFPAY ==
--- NOTE | 2024-12-25 14:46 | PC.NURSE ---
Report to the Outpatient Waiting Room, entrance under the green pavilion located off [facility], at time __6:30 AM on date _01/15/25 . Planned Procedure Time: _8:30 AM .? Time changes happen often and if your time is changed the preop area will call you the afternoon before. - You and your visitor will be asked to self-screen and do not enter if you have any COVID symptoms. Please call surgeon if you need to reschedule. - A mask is optional within the hospital at this time. Patients may have clear liquids (water, carbonated beverages, clear teas, apple juice) until 3 hours prior to surgery ( 5:30AM ) with a maximum of 20 ounces. - No food from midnight until time of surgery and no smoking, or chewing tobacco (or any form of nicotine). No chewing gum, candy or mints. - Take only the following medications with a SIP of water on the morning of surgery: NONE DO NOT STOP ANY OF YOUR OTHER PRESCRIPTION MEDICATIONS PRIOR TO SURGERY EXCEPT THE FOLLOWING Hold all vitamins and supplements for 3 days per anesthesiologist. Medications to discontinue per physician NONE Please no make-up, nail irish, hairspray, perfume, deodorant, or body powder the day of surgery.? No jewelry (including any body piercings) or valuables the day of surgery, leave them at home.? Please take a shower or bath the night before, or the morning of, surgery with an antibacterial soap.? Wear comfortable, loose fitting clothing.? Children are encouraged to wear pajamas. - Jewelry must be removed prior to entering the operating room.? Rings and piercings that are not removed may be cut off. - The hospital will not accept responsibility for valuables.? - Please leave all valuables, including medications, at home the day of surgery. If you are going home after surgery, a licensed short haul driver must drive you home.? - NO public transportation without another adult if you receive anesthesia. - We recommend that an adult stay with you for 24 hours following discharge. - We also recommend that you do not drive, make important decision, drink alcoholic beverages, or take any drugs that were not prescribed by your health care provider for at least 24 hours after your discharge time. Follow any additional instructions given to you from your surgeon. Telephone instructions given to __PATIENT and asked if any additional questions and then verbalized understanding. Patient advised to call surgeon office or pre surgery nurse liaison [phone] if any additional questions.
[2024-12-25 15:05] VITALS: BMI 25.8
[2025-01-15] VITALS (9 sets, daily range): BP systolic 113–135; BP diastolic 83–93; PULSE 68–85; RESP 12–18; TEMP 36.3–36.6; O2SAT 93–99
--- OUTSIDE RECORDS SUMMARY | 2025-01-15 01:09 | XMS_ITS | Clinical Summary ---
Author Organization [facility] Address [address] [place] [address] Care Team Providers Care Cutter Machine Tender Name Role Phone Unavailable Primary Care Provider Unavailabl e Source Comments [facility],non-owned Affiliates and Associated Physician Practices is amultiple site organization consisting of ambulatory clinics and hospital sitesin [place], [place], [place] and [place]. This disclosure is being madepursuant to the Care Everywhere program and may not contain all information available regarding this patient. 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 Gender Identity Not on file Sexual Orientation [...] VACCINE (1 - 2023-2 5 season) 2024 DEPRESSION SCREENING 05/22/2024 INFLUENZA VACCINE (#1) 2025 Respiratory Syncytial Virus (RSV) Vaccine Pt: or [...] Priority Date/Time Associated Diagnosis Comments DERMATOPATHOLOGY Routine 11/06/2024 2:39 PM CDT from Last 3 Months Results * DERMATOPATHOLOGY (11/06/2024 2:39 PM CDT) Case Report Dermatopathology Report Case: [id number] Authorizing Provider: Sally Foster MD Collected: 11/06/2024 02:39 PM Ordering Location: [facility] - Received: 11/07/2024 01:21 PM DermPath Lab Pathologist: Fabiola Pettit MD Specimens: A) - Skin, right nose B) - Skin, left forearm 3:52 PM CDT DERMATOPATHOLOGY LABORATORY Final Diagnosis Specimen A. 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 SKIN, left forearm: SQUAMOUS CELL CARCINOMA IN SITU (SOTO'S DISEASE) (D04.62) 3:52 PM CDT DERMATOPATHOLOGY LABORATORY at 1552 CDT Clinical History A: FP, [facility] vs [facility] B: AK vs SCC 3:52 PM CDT DERMATOPATHOLOGY LABORATORY Gross Description Specimen A: Received is one formalin filled container labeled with the patient's name and designated right nose. The specimen consists of a shave biopsy measuring 5x3x1 mm. Jar 0. Specimen B: Received is one formalin filled container labeled with the patient's name and designated left forearm. The specimen consists of a shave biopsy measuring 6x5x1 mm. Jar 0. 3:52 PM CDT DERMATOPATHOLOGY LABORATORY Microscopic Description Specimen A. SKIN, right nose: There is hyperkeratosis alternating with parakeratosis. There is epidermal hyperplasia with disorderly maturation of keratinocytes with nuclear pleomorphism confined to the lower half of the epidermis. A mild perivascular and perifollicular inflammatory infiltrate composed predominantly of lymphocytes is noted in the upper and mid dermis. Dilated thin-walled superficial dermal blood vessels are observed. Solar elastosis is present. Demodex is seen within the follicular ostium. Specimen B. SKIN, left forearm: The epidermis shows parakeratosis, full thickness disorderly maturation of keratinocytes, mitoses at different levels, and dyskeratotic cells. 3:52 PM CDT DERMATOPATHOLOGY LABORATORY Disclaimer An external and internal positive and negative controls are appropriate for the histochemical, immunohistochemical and immunofluorescence stain(s) in this case (if any), except where stated explicitly. The performance characteristics of the stain(s) cited in this report were developed and its performance characteristic determined by the Dermatopathology Laboratory at [facility], directed by Dr. Amie Olivares. These tests need not be, and therefore are not, approved by the [place] Food and Drug Administration. The tests are used for clinical purposes. Billing Codes Specimen Charges Stain Charges 50065 87786 1 1 3:52 PM CDT DERMATOPATHOLOGY LABORATORY Embedded Images 3:52 PM CDT DERMATOPATHOLOGY LABORATORY Pathology/Cytology TISSUE SPECIMEN FROM SKIN / Unknown 11/06/2024 2:39 PM CDT 11/07/2024 1:21 PM CDT Miscellaneous samples (specimen) TISSUE SPECIMEN FROM SKIN / Unknown 11/06/2024 2:39 PM CDT 11/07/2024 1:21 PM CDT us Sally Foster MD LAB - PATHOLOGY/CYTOLOGY ORD ERABLES Final Result DERMATOPATHOLOGY LABORATORY [facility] - Department of Dermatology [address] [place] [address], [facility] [phone] from Last 3 Months Insurance [facility] SELF PAY NO INSURANCE Member Subscriber Plan / Payer (Ef fective for All Dates) Name:Trevor Jewell Member ID:Not on file Relation to Subscriber:Not on file Name:TREVOR JEWELL Subscriber ID:Not on file (Home) Address: [address] [place] [address] Payer ID:Not on file Group ID:Not on file Type:Self Pay Address: [place], [place]
--- OUTSIDE RECORDS SUMMARY | 2025-01-15 01:09 | XMS_ITS | Clinical Summary ---
Author Organization [facility] Address [address] [place] [address] Care Team Providers Care Cabin Agent Name Role Phone Vicente Braun MD Primary Care Provider [phone] Allergies No known active allergies Medications No known medications Active Problems Problem Noted Date Diagnosed Date Prostate cancer 06/14/2017 Tobacco use 06/14/2017 Encounters Date Type Department Care Team Description 01/07/2025 External Device Data STL ABSTRACTION Provider, Abstract 12/25/2024 External Device Data STL ABSTRACTION Provider, Abstract 12/04/2024 External Device Data STL ABSTRACTION Provider, Abstract 12/03/2024 External Device Data STL ABSTRACTION Provider, Abstract 11/05/2024 External Device Data STL ABSTRACTION Provider, Abstract 10/15/2024 External Device Data STL ABSTRACTION Provider, Abstract 10/15/2024 External Device Data STL ABSTRACTION Provider, Abstract [...] on file Legal Sex Male 10:33 AM QUARRY MANAGER Gender Identity Not on file Sexual Orientation Not on file Last Filed Vital Signs Vital Sign Reading Time Taken Comments Blood Pressure 140/96 08/20/2024 3:20 PM CDT Pulse 82 08/20/2024 3:17 PM CDT Temperature 36.3 C (97.4 F) 08/20/2024 3:17 PM CDT Respiratory Rate 15 08/20/2024 3:17 PM CDT Oxygen Saturation 96% 08/20/2024 3:17 PM CDT Inhaled Oxygen Concentration - - Weight 83.4 kg (183 lb 12.8 oz) 08/20/2024 3:17 PM CDT Height 177.8 cm (5' 10) 07/26/2021 9:46 AM QUARRY MANAGER Body Mass Index 26.37 07/26/2021 9:46 AM QUARRY MANAGER Plan of Treatment Health Maintenance Due Date Last Done Comments Pre-Diabetes and Diabetes Screening 1962 DTAP/TDAP/TD VACCINES (1 - Tdap) 1981 COLORECTAL SCREENING 01/01/2008 Colorectal Cancer Screening 01/01/2008 FIT-DNA Q 3 years 01/01/2008 FIT/FOBT Q 1 year 01/01/2008 Flex Sig/CT Colonography Q 5 years 01/01/2008 Lung Cancer Screening 2012 ZOSTER VACCINE (1 of 2) 2012 INFLUENZA VACCINE (#1) 2024 RSV VACCINE (60+ or ) (1 - 1-dose 75+ series) [address] Care Teams Cabin Agent Relationship Specialty Start Date End Date Vicente Braun MD [address] [facility] [place] [address] PCP - General Family Practice 06/09/17
--- OUTSIDE RECORDS SUMMARY | 2025-01-15 01:09 | XMS_ITS | Encounter Summary ---
Author Organization [facility] Address [address] [place] [address] Care Team Providers Care Public Works Commissioner Name Role Phone Unavailable Primary Care Provider Unavailabl e Encounter Details Date Type Department Care Team (Late st Contact Info) Description 11/06/2024 Lab Requisition [facility] Physician [facility] - DermPath Lab [address] [facility], [place] [address] Sally Foster MD [address] [facility] [address] [place] [address] Social History Tobacco Use Types Packs/Day Years Used Date Smoking Tobacco: Never Assessed Sex and Gender Information Value Date Recorded Sex Assigned at Not on file Legal Sex Male 5:41 AM [employer] Gender Identity Not on file Sexual Orientation Not on file documented as of this encounter Plan of Treatment Not on file documented as of this encounter Procedures Procedure Name Priority Date/Time Associated Diagnosis Comments DERMATOPATHOLOGY Routine 11/06/2024 2:39 PM CDT documented in this encounter Results * DERMATOPATHOLOGY (11/06/2024 2:39 PM CDT) Case Report Dermatopathology Report Case: [id number] Authorizing Provider: Sally Foster MD Collected: 11/06/2024 02:39 PM Ordering Location: [facility] - Received: 11/07/2024 01:21 PM DermPath Lab [...] characteristic determined by the Dermatopathology Laboratory at [facility], directed by Dr. Amie Olivares. These tests need not be, and therefore are not, approved by the [place] Food and Drug Administration. The tests are used for clinical purposes. Billing Codes Specimen Charges Stain Charges 33260 78725 1 1 3:52 PM CDT DERMATOPATHOLOGY LABORATORY Embedded Images 3:52 PM CDT DERMATOPATHOLOGY LABORATORY Pathology/Cytology TISSUE SPECIMEN FROM SKIN / Unknown 11/06/2024 2:39 PM CDT 11/07/2024 1:21 PM CDT Miscellaneous samples (specimen) TISSUE SPECIMEN FROM SKIN / Unknown 11/06/2024 2:39 PM CDT 11/07/2024 1:21 PM CDT us Sally Foster MD LAB - PATHOLOGY/CYTOLOGY ORD ERABLES Final Result DERMATOPATHOLOGY LABORATORY [facility] - Department of Dermatology [facility] [address] [place] [address], [address] [phone] documented in this encounter Visit Diagnoses Not on filedocumented in this encounter
[2025-01-15] MEDS: LACTATED RINGERS 1,000 ML 30 ML IV CONT ×2 (06:35→11:41)
[2025-01-15] MEDS: VANCOMYCIN 1,250 MG/NS 250 ML 1,250 MG/250 ML BAG 166.67 MG IVPB (06:50)
[2025-01-15] MEDS: GENTAMICIN SULFATE INJ 390 MG in DEXTROSE 5% 100 ML 99.55 MG IVPB (06:55)
--- NOTE | 2025-01-15 07:33 | WPDHPUPDATE1 ---
History and Physical Update Update Date/Time: 01/15/25 07:33 History and Physical has been reviewed, including an updated exam of the patient. There are NO changes in the patient's condition. Plan AMS IPP with possible scrototplasty Risks, benefits, and alternatives have been discussed and questions answered. Patient agrees to proceed with procedure.
--- NOTE | 2025-01-15 08:10 | WPDANESEPPF ---
Anes - Initial Pre Proc Eval Procedure: Operation Date: 01/15/25 08:30 Proposed Procedures p Insertion Inflatable Penile Prosthesis, Scrotoplasty - Tim Anthony MD Date/Time: 01/15/25 08:10 Surgeon: Tim Anthony MD Pre Op Diagnosis: ED following prostatectomy, penoscrotal fusion Patient Data Age: 64 Gender: M Height: 1.78 m Weight: 77.5 kg Last Vital Signs Temp 97.3 F L 01/15/25 06:20 Pulse 70 01/15/25 06:20 Resp 18 01/15/25 06:20 BP 135/93 H 01/15/25 06:20 Pulse Ox 99 01/15/25 06:20 O2 Del Method Room Air 01/15/25 06:20 Allergies Allergy/AdvReac Type Severity Reaction Status Date / Time No Known Allergies Allergy Unknown Verified 01/15/25 07:07 Home Medications ?Medication ?Instructions ?Recorded ?Confirmed ?Type levofloxacin 500 mg tablet 500 mg PO Q24H 01/15/25 01/15/25 History Patient hx anesthesia problems: none Family hx anesthesia problems: none Results Review: All pre-operative results and documents have been reviewed as part of the pre-operative evaluation. [facility] Past Medical History Medical History Acute osteomyelitis of left clavicle Anxiety Aortic stenosis Carpal tunnel syndrome left Depression History of blood transfusion History of prostate cancer (~2010) Hypertension Paroxysmal atrial fibrillation Septic arthritis of knee, right Unspecified osteoarthritis, unspecified site Surgical History Surgical History H/O inguinal hernia repair [facility] 08/13/21 History of carpal tunnel release left History of prostatectomy (~2017) History of synovectomy (~08/2016) Hx of hernia repair 2001 Family History Family History Father No problems noted. 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 Informed Consent: The patient's anesthetic plan and its attendant risks and benefits were discussed with the patient/family/POA. Questions were solicited and answers provided to the satisfaction of the patient/family/POA. The pt history consists of and Paroxysmal AF and he denies any of those heart problems. He works at the [employer] and very active and has no problems with stairs or exercise.
--- NOTE | 2025-01-15 08:20 | ECG_ITS ---
Test Date: 2025-01-15 08:38:10 Measurements Intervals Robert Lee Rate: 64 P: -4 PA: 143 QRS: -3 QRSD: 84 T: -28 QT: 414 QTc: 428 Interpretive Statements SINUS RHYTHM NONSPECIFIC T-WAVE ABNORMALITY- INFERIOR LEADS BORDERLINE ECG No previous ECG available for comparison Electronically Signed On 01-15-2025 08:48:21 CDT by Isidoro Flores D.O.
[2025-01-15] MEDS: LIDOCAINE 1% LOCAL INJ 20 ML VIAL INFILTRATE (08:46)
[2025-01-15] MEDS: BUPivacaine HCL 0.5% 10 ML AMP 20 ML INFILTRATE (10:34)
--- NOTE | 2025-01-15 12:08 | P.OP_ITS ---
Procedure Note - Detailed Date of Procedure 01/15/25 Pre-op Diagnosis ED following prostatectomy, penoscrotal fusion Post-op Diagnosis Other (ED following prostatectomy, penoscrotal fusion, Peyronie's disease) Procedure Performed 1. Insertion of 3-piece inflatable penile prosthesis. 2. Artificial erection using pharmacological agent. 3. Scrotoplasty 4. Correction of left-sided penile curvature with modeling 5. Possible cystoscopy and García catheter insertion Surgeon Tim Anthony MD Anesthesia General Findings - penoscrotal fusion - 40? of left-sided curvature, corrected to 10- 15? of residual curvature at time of penile implant -placement of AMS CX 18+ 2cm device Description of Procedure DESCRIPTION OF OPERATION Informed consent obtained, patient taken to the operating room and given preoperative IV antibiotics with vancomycin and gentamicin. Additionally the patient has been taking oral levofloxacin and done a 3-day wash with Hibiclens. The patient was shaved. He was then prepped with Betadine scrub and paint followed by ChloraPrep. Sterile drapes were placed. We again prepped with ChloraPrep. We attempted to place a 16-Latvian García catheter, there were there was significant resistance at what likely the bladder neck in this patient with history of radiation. We therefore placed a flexible cystoscope urethra and then transverse through the bladder neck into the bladder. Special bladder without significant mucosal abnormalities. Over a wire we placed a 16 F Councill tip catheter with return of clear urine. Catheter was left to gravity drainage we then changed our gloves. We then performed a pharmacologically induced erection with dilute lidocaine. There was mild left-sided curvature noted. We then made a penoscrotal 3 cm transverse incision in the scrotal plasty fashion removing the fused skin. We dissected bluntly down to identify the corporal bodies taking great care not to injure the urethra. Stay sutures of 2-0 PDS were placed in the corporal body. We sharply opened the corpora. We then serially dilated up to a 12 Wilson dilator. We then measured the corpora. Measurements were 10 cm proximally and 10 cm distally. We irrigated and there was no injury. We then performed an identical procedure on the contralateral side. Measurements were 10 cm proximal, 10 cm distal. Dilators were placed into the corpora bilaterally confirming that there was no crossover. We elected to place an AMS CX device 18 cm + 2 cm of rear tip extenders. We again irrigated the corporal bodies. We then inserted the prosthesis. We inflated using a surrogate reservoir and the device sat nicely with tips in the mid glans, with [id number]? of leftward curvature. We then performed penile modeling for 60seconds x2 with correction of the curvature to approximately 10 to 15 residual degrees of left curvature. We felt this was an excellent improvement and good cosmetic result. We then deflated. We then closed the pre-placed 2-0 PDS sutures. We again inflated using the surrogate reservoir with an excellent cosmetic result. We then made a right lower quadrant incision for approximately 2 cm over the previous right inguinal hernia incision. We bluntly dissected down to the external oblique fascia. The fascia was opened. We then the rectus muscle and created a space superiorly in the sub rectus. We emptied the bladder prior to our incision. We then irrigated copiously. We pre-placed 0 Vicryl sutures. We placed the reservoir in the sub rectus space. We fill it with 110 mL and there was no back pressure. We then left 85 mL in the reservoir. Our pre- placed external oblique fascia sutures were closed. We then made a subdartos pouch in the midline for the pump placement. It sat nicely in the inferior scrotum. We then closed the hiatus with 3-0 Vicryl suture. The tubing was then brought up to the abdominal incision. Using the quick connect device, we connected the pump to the reservoir. We then cycled the device again and it functioned nicely. We then removed the stay sutures through the glans. We then again irrigated copiously. We closed the scrotal incision with multiple layers of 3-0 Vicryl suture followed by a scrotoplasty skin closure with 3-0 and 4-0 Monocryl. The right lower quadrant incision was closed with 2-0 Vicryl to Ventura's, 3-0 Vicryl deep dermal layer and a 4-0 Monocryl subcuticular closure. Glue was placed over all incisions. A compressive dressing was placed. Patient was awakened and taken to recovery room in stable condition. Plan discharge home today. Patient to follow-up on January 17, 2025 for void trial Pathology None sent Complications No immediate complications Condition Stable Disposition PACU
[2025-01-15] MEDS: oxyCODONE (*CRX) 5 MG/5 ML ORAL SOLN IR PO (12:54)
== END 2025-01-15 13:45 | disposition home or self-care (01) ==
PROVIDERS: PCP Family Medicine; Visit Provider Urology
PROC: (CPT 54405; principal; 2025-01-15 08:30)
DX: N52.31 Erectile dysfunction following radical prostatectomy (principal); N48.6 Induration penis plastica; K21.9 Gastro-esophageal reflux disease without esophagitis; I10 Essential (primary) hypertension; I48.0 Paroxysmal atrial fibrillation; F41.9 Anxiety disorder, unspecified; I35.0 Nonrheumatic aortic (valve) stenosis; F32.A Depression, unspecified; G56.02 Carpal tunnel syndrome, left upper limb; M00.861 Arthritis due to other bacteria, right knee; M86.112 Other acute osteomyelitis, left shoulder; R94.31 Abnormal electrocardiogram [ECG] [EKG]; F17.210 Nicotine dependence, cigarettes, uncomplicated; F12.90 Cannabis use, unspecified, uncomplicated; Z98.890 Other specified postprocedural states; Z85.46 Personal history of malignant neoplasm of prostate; Z80.49 Family history of malignant neoplasm of other genital organs; Z80.1 Family history of malignant neoplasm of trachea, bronchus and lung
CPT/HCPCS: 54405; 54235; 54360; 55175; 93005; A9270; C1769; C1813; J0690; J1100; J1580; J2003; J2250; J2405; J2704; J3010; J3373; J7030; J7120